=== PATIENT | female | born 2000 | race African-American/Black ===

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

== ENCOUNTER 2021-01-11 00:35 | Emergency (ER) | payer MEDICAID ==
[~2021-01-11] VITALS: Ht 160 cm; Wt 62.0 kg
[2021-01-11 00:38] VITALS: BP 115/65
[2021-01-11] MEDS ORDERED: IBUPROFEN 800MG TABLET PO ONE (01:00)
[2021-01-11] MEDS ORDERED: METOCLOPRAMIDE HCL 10MG TABLET PO ONE (01:00)
[2021-01-11 01:21] LABS: CLARITY URINE CLEAR (CLEAR); COLOR URINE YELLOW (YELLOW); KETONES URINE NEGATIVE (NEGATIVE); LEUKOCYTE ESTERASE URINE NEGATIVE (NEGATIVE); NITRITE URINE NEGATIVE (NEGATIVE); OCCULT BLOOD URINE NEGATIVE (NEGATIVE); PH URINE 5.5 (4.5-8.0); PROTEIN URINE NEGATIVE (NEGATIVE); SPECIFIC GRAVITY URINE 1.009 (1.005-1.030); UROBILINOGEN URINE 0.2 E.U./dL (0.2-1.0)
[2021-01-11] MEDS ORDERED: ONDA4TAB5 PO (01:33)
[2021-01-11] MEDS ORDERED: IBUP-2028 PO (01:33)
== END 2021-01-11 02:07 | disposition home or self-care (01) ==
LOC: ER 00:35
DX: R51.9 Headache, unspecified (principal); R11.0 Nausea; R42 Dizziness and giddiness; J45.909 Unspecified asthma, uncomplicated
CPT/HCPCS: 81003; 81025; 82962; 99283; J8597

== ENCOUNTER 2021-10-05 14:22 | Emergency (ER) | payer MEDICAID ==
[~2021-10-05] VITALS: Ht 160 cm; Wt 64.0 kg
[~2021-10-05 14:22] MED LIST: IBUP-2028 PO; ONDA4TAB5 PO
[2021-10-05 14:26] VITALS: BP 104/68
[2021-10-05] MEDS ORDERED: IBUPROFEN 600MG TABLET PO ONE (15:00)
== END 2021-10-05 15:45 | disposition left against medical advice (07) ==
LOC: ER 14:22
DX: J02.9 Acute pharyngitis, unspecified (principal); J45.909 Unspecified asthma, uncomplicated
CPT/HCPCS: 87070; 87430; 99283

== ENCOUNTER 2021-11-13 01:38 | Emergency (ER) | payer MEDICAID ==
[~2021-11-13] VITALS: Ht 162.6 cm; Wt 64.0 kg
[2021-11-13] MEDS ORDERED: DOXYCYCLINE HYCLATE 100MG CAPSULE PO ONE (03:45)
[2021-11-13] MEDS ORDERED: LIDOCAINE HCL 1% 20ML VIAL (Pyxis) INJ INFIL ONE (03:45)
[2021-11-13] MEDS ORDERED: CEFTRIAXONE SODIUM 500 MG/VIAL IM ONE (03:45)
[2021-11-13 05:04] LABS: CLARITY URINE CLEAR (CLEAR); COLOR URINE YELLOW (YELLOW); KETONES URINE NEGATIVE (NEGATIVE); LEUKOCYTE ESTERASE URINE NEGATIVE (NEGATIVE); NITRITE URINE NEGATIVE (NEGATIVE); OCCULT BLOOD URINE NEGATIVE (NEGATIVE); PROTEIN URINE NEGATIVE (NEGATIVE); SPECIFIC GRAVITY URINE 1.016 (1.005-1.030); UROBILINOGEN URINE 0.2 E.U./dL (0.2-1.0)
[2021-11-13] MEDS ORDERED: DOXY100T2 MT (05:12)
[2021-11-13 05:45] VITALS: BP 118/77
[2021-11-15 05:13] LABS: NEISSERIA GONORRHOEAE NAA Negative (Negative)
== END 2021-11-13 05:45 | disposition home or self-care (01) ==
LOC: ER 01:38
DX: N89.8 Other specified noninflammatory disorders of vagina (principal); R10.2 Pelvic and perineal pain; A64 Unspecified sexually transmitted disease; J45.909 Unspecified asthma, uncomplicated
CPT/HCPCS: 81003; 81025; 87210; 87491; 87591; 96372; 99283; J0696; J3490

== ENCOUNTER 2023-04-13 03:47 | Emergency (ER) | payer MEDICAID, OTHER ==
[~2023-04-13] VITALS: Ht 165.1 cm; Wt 62.8 kg
[~2023-04-13 03:47] MED LIST changes: +DOXY100T2 MT
[2023-04-13 03:53] VITALS: BP 110/64; O2SAT 100
[2023-04-13 04:14] LABS: BASOPHILS % 1.1 % (0.0-2.0); HEMATOCRIT. 37.9 % (36.0-48.0); HEMOGLOBIN. 12.8 g/dL (12.0-16.0); LYMPHOCYTES % 41.6 % (20.0-50.0); MEAN CORPUSCULAR HEMOGLOBIN 30.2 pg (28.0-32.0); MEAN CORPUSCULAR HGB CONC 33.8 g/dL (31.0-37.0); MEAN CORPUSCULAR VOLUME 89.3 fL (81.0-99.0); MEAN PLATELET VOLUME 7.9 fl (7.4-10.4); MONOCYTES % 6.4 % (2.0-8.0); NEUTROPHILS % 44.9 % (40.0-76.0); PLATELET 275 x1000/uL (130-400); RED BLOOD CELL COUNT 4.25 mill/uL (4.2-5.4); RED CELL DISTRIBUTION WIDTH 13.3 % (11.6-14.6); WHITE BLOOD COUNT 6.1 x1000/uL (4.5-11.0)
[2023-04-13] MEDS ORDERED: ACETAMINOPHEN 325MG TABLET PO ONE (04:15)
[2023-04-13 04:19] LABS: CLARITY URINE CLEAR (CLEAR); COLOR URINE YELLOW (YELLOW); GLUCOSE URINE NEGATIVE (NEGATIVE); KETONES URINE NEGATIVE (NEGATIVE); LEUKOCYTE ESTERASE URINE NEGATIVE (NEGATIVE); NITRITE URINE NEGATIVE (NEGATIVE); OCCULT BLOOD URINE NEGATIVE (NEGATIVE); PH URINE 6.5 (4.5-8.0); PROTEIN URINE NEGATIVE (NEGATIVE); SPECIFIC GRAVITY URINE 1.011 (1.005-1.030); UROBILINOGEN URINE 0.2 E.U./dL (0.2-1.0)
[2023-04-13 04:23] LABS: CHLORIDE 106 mEq/L (98-107); INDEX HEMOLYSI 1 (1-3); INDEX ICTERIC 1 (1-4); INDEX LIPEMIC 1 (1-3); SODIUM 138 mEq/L (136-145)
[2023-04-13 04:31] LABS: ALANINE AMINOTRANSFERASE 14 IU/L (13-61); ALBUMIN 3.9 g/dL (3.4-5.0); ASPARTATE AMINOTRANSFERASE 12 IU/L (15-37); BILIRUBIN TOTAL 0.4 mg/dL (0.1-1.0); CALCIUM 8.9 mg/dL (8.5-10.1); CARBON DIOXIDE 27 mEq/L (21-32); CREATININE 0.8 mg/dL (0.6-1.3); GLUCOSE 93 mg/dL (70-105); PROTEIN TOTAL 7.1 g/dL (6.0-8.3); UREA NITROGEN BLOOD 10 mg/dL (7-21)
[2023-04-13] MEDS ORDERED: POLY17PO3 PO (05:49)
[2023-04-13 06:15] VITALS: PULSE 85; RESP 16; TEMP 98
== END 2023-04-13 06:16 | disposition home or self-care (01) ==
LOC: ER 03:55
DX: K59.00 Constipation, unspecified (principal); J45.909 Unspecified asthma, uncomplicated
CPT/HCPCS: 36415; 74176; 80053; 81003; 81025; 85025; 99284

== ENCOUNTER 2023-08-01 02:02 | Emergency (ER) | payer MEDICAID ==
[~2023-08-01] VITALS: Ht 162.6 cm; Wt 61.0 kg
[~2023-08-01 02:02] MED LIST changes: +POLY17PO3 PO
[2023-08-01 02:34] VITALS: BP 118/76; PULSE 70; RESP 16; TEMP 98; O2SAT 100
== END 2023-08-01 06:09 | disposition left against medical advice (07) ==
LOC: ER 02:02
DX: M79.605 Pain in left leg (principal); Z53.21 Procedure and treatment not carried out due to patient leaving prior to being seen by health care provider
CPT/HCPCS: 99281

== ENCOUNTER 2024-04-24 21:45 | Emergency (ER) | payer MEDICAID ==
[~2024-04-24] VITALS: Ht 160 cm; Wt 62.0 kg
[2024-04-24 22:07] VITALS: O2SAT 100
[2024-04-24 23:06] LABS: BASOPHILS % 1.4 % (0.0-2.0); EOSINOPHILS % 8.4 % (0.0-5.0); HEMATOCRIT. 36.2 % (36.0-48.0); HEMOGLOBIN. 12.2 g/dL (12.0-16.0); LYMPHOCYTES % 44.9 % (20.0-50.0); MEAN CORPUSCULAR HEMOGLOBIN 30.7 pg (28.0-32.0); MEAN CORPUSCULAR HGB CONC 33.7 g/dL (31.0-37.0); MEAN CORPUSCULAR VOLUME 91.2 fL (81.0-99.0); NEUTROPHILS % 40.3 % (40.0-76.0); PLATELET 295 x1000/uL (130-400); RED BLOOD CELL COUNT 3.97 mill/uL (4.2-5.4); RED CELL DISTRIBUTION WIDTH 12.9 % (11.6-14.6)
[2024-04-24 23:08] LABS: CHLORIDE 107 mEq/L (98-107); POTASSIUM 3.8 mEq/L (3.5-5.1)
[2024-04-24 23:09] LABS: CARBON DIOXIDE 25 mEq/L (21-32); SODIUM 137 mEq/L (136-145)
[2024-04-24 23:10] LABS: CALCIUM 9.1 mg/dL (8.7-10.4)
[2024-04-24 23:14] LABS: CREATININE 0.9 mg/dL (0.6-1.0); GLUCOSE 121 mg/dL (70-105)
[2024-04-24 23:15] LABS: UREA NITROGEN BLOOD 8 mg/dL (9-23)
[2024-04-24 23:16] LABS: ALANINE AMINOTRANSFERASE 8 IU/L (10-49); ALBUMIN 4.1 g/dL (3.2-4.8); ASPARTATE AMINOTRANSFERASE 15 IU/L (<34)
[2024-04-24 23:17] LABS: BILIRUBIN DIRECT 0.2 mg/dL (<=3.0); BILIRUBIN TOTAL 0.7 mg/dL (0.1-1.0); PROTEIN TOTAL 6.7 g/dL (6.0-8.3)
[2024-04-24 23:28] LABS: CLARITY URINE CLEAR (CLEAR); COLOR URINE YELLOW (YELLOW); GLUCOSE URINE NEGATIVE (NEGATIVE); KETONES URINE NEGATIVE (NEGATIVE); LEUKOCYTE ESTERASE URINE NEGATIVE (NEGATIVE); NITRITE URINE NEGATIVE (NEGATIVE); OCCULT BLOOD URINE NEGATIVE (NEGATIVE); PROTEIN URINE NEGATIVE (NEGATIVE); SPECIFIC GRAVITY URINE 1.004 (1.005-1.030); UROBILINOGEN URINE 0.2 E.U./dL (0.2-1.0)
[2024-04-25] MEDS ORDERED: FAMO-135 MT (01:09)
[2024-04-25] MEDS ORDERED: [UNRECOGNIZED DRUG - CODE] PO (01:09)
[2024-04-25 01:58] VITALS: BP 98/64; PULSE 74; RESP 18; TEMP 36.89184; O2SAT 100
== END 2024-04-25 06:37 | disposition home or self-care (01) ==
LOC: ER 21:45
DX: K80.50 Calculus of bile duct without cholangitis or cholecystitis without obstruction (principal); J45.909 Unspecified asthma, uncomplicated; Z79.899 Other long term (current) drug therapy
CPT/HCPCS: 36415; 76705; 80048; 80076; 81003; 81025; 85025; 99284

== ENCOUNTER 2024-12-25 13:50 | Emergency (ER) | payer MEDICAID ==
[~2024-12-25] VITALS: Ht 162.6 cm; Wt 61.0 kg
[~2024-12-25 13:50] MED LIST changes: +FAMO-135 MT; +[UNRECOGNIZED DRUG - CODE] PO
[2024-12-25 14:05] VITALS: TEMP 36.9; O2SAT 100
[2024-12-25 15:02] LABS: BASOPHILS % 0.8 % (0.0-2.0); HEMOGLOBIN. 12.3 g/dL (12.0-16.0); LYMPHOCYTES % 36.5 % (20.0-50.0); MEAN CORPUSCULAR HEMOGLOBIN 30.7 pg (28.0-32.0); MEAN CORPUSCULAR HGB CONC 34.1 g/dL (31.0-37.0); MEAN CORPUSCULAR VOLUME 89.9 fL (81.0-99.0); MEAN PLATELET VOLUME 8.4 fl (7.4-10.4); MONOCYTES % 7.6 % (2.0-8.0); NEUTROPHILS % 46.1 % (40.0-76.0); PLATELET 279 x1000/uL (130-400); RED CELL DISTRIBUTION WIDTH 13.4 % (11.6-14.6); WHITE BLOOD COUNT 5.3 x1000/uL (4.5-11.0)
[2024-12-25 15:09] LABS: CHLORIDE 111 mEq/L (98-107); POTASSIUM 4.1 mEq/L (3.5-5.1); SODIUM 141 mEq/L (136-145)
[2024-12-25 15:10] LABS: CARBON DIOXIDE 26 mEq/L (21-32)
[2024-12-25 15:11] LABS: CALCIUM 9.1 mg/dL (8.7-10.4)
[2024-12-25 15:15] LABS: CREATININE 1.1 mg/dL (0.6-1.0)
[2024-12-25 15:16] LABS: GLUCOSE 79 mg/dL (70-105); UREA NITROGEN BLOOD 12 mg/dL (9-23)
[2024-12-25 15:17] LABS: ALANINE AMINOTRANSFERASE < 7 IU/L (10-49); ASPARTATE AMINOTRANSFERASE 15 IU/L (<34)
[2024-12-25 15:18] LABS: ALBUMIN 4.2 g/dL (3.2-4.8); BILIRUBIN DIRECT 0.2 mg/dL (<=3.0); BILIRUBIN TOTAL 0.6 mg/dL (0.1-1.0); PROTEIN TOTAL 6.8 g/dL (6.0-8.3)
[2024-12-25 16:08] LABS: HCG SCREEN NEGATIVE
[2024-12-25 16:13] LABS: CLARITY URINE CLEAR (CLEAR); COLOR URINE YELLOW (YELLOW); GLUCOSE URINE NEGATIVE (NEGATIVE); KETONES URINE NEGATIVE (NEGATIVE); LEUKOCYTE ESTERASE URINE NEGATIVE (NEGATIVE); NITRITE URINE NEGATIVE (NEGATIVE); OCCULT BLOOD URINE NEGATIVE (NEGATIVE); PH URINE 7.5 (4.5-8.0); PROTEIN URINE NEGATIVE (NEGATIVE); SPECIFIC GRAVITY URINE 1.015 (1.005-1.030); UROBILINOGEN URINE 0.2 E.U./dL (0.2-1.0)
[2024-12-25 16:20] LABS: UCG KIT EXPIRATION DATE 11/27/2026; UCG KIT LOT# 946166; UCG SCREEN NEGATIVE
[2024-12-25 16:42] VITALS: BP 96/58; PULSE 76; RESP 16; O2SAT 99
== END 2024-12-25 16:43 | disposition home or self-care (01) ==
LOC: ER 13:50
DX: R10.2 Pelvic and perineal pain (principal); J45.909 Unspecified asthma, uncomplicated; Z79.1 Long term (current) use of non-steroidal anti-inflammatories (NSAID); Z79.899 Other long term (current) drug therapy
CPT/HCPCS: 36415; 80048; 80076; 81003; 81025; 84703; 85025; 86850; 86900; 99283

== ENCOUNTER 2025-04-19 22:38 | Emergency (ER) | payer MEDICAID ==
[~2025-04-19] VITALS: Ht 157.5 cm; Wt 54.3 kg
[2025-04-19 22:41] VITALS: O2SAT 99
[2025-04-19 23:58] LABS: CREATININE 0.9 mg/dL (0.6-1.0); UREA NITROGEN BLOOD 8 mg/dL (9-23)
[2025-04-20] LABS: ASPARTATE AMINOTRANSFERASE 16 IU/L (<34); BILIRUBIN DIRECT 0.2 mg/dL (<=3.0)
[2025-04-20 00:01] LABS: BILIRUBIN TOTAL 0.6 mg/dL (0.1-1.0); PROTEIN TOTAL 7.0 g/dL (6.0-8.3)
[2025-04-20 00:33] LABS: CLARITY URINE CLEAR (CLEAR); COLOR URINE YELLOW (YELLOW); GLUCOSE URINE NEGATIVE (NEGATIVE); KETONES URINE 1+ (NEGATIVE); LEUKOCYTE ESTERASE URINE NEGATIVE (NEGATIVE); NITRITE URINE NEGATIVE (NEGATIVE); OCCULT BLOOD URINE NEGATIVE (NEGATIVE); PH URINE 5.0 (4.5-8.0); PROTEIN URINE NEGATIVE (NEGATIVE); SPECIFIC GRAVITY URINE 1.018 (1.005-1.030); UROBILINOGEN URINE 1.0 E.U./dL (0.2-1.0)
[2025-04-20] MEDS: ACETAMINOPHEN 325MG TABLET PO ONE (01:37)
[2025-04-20] MEDS: ONDANSETRON HCL 4MG TABLET PO ONE (01:38)
[2025-04-20 02:21] LABS: BASOPHILS % 1.1 % (0.0-2.0); EOSINOPHILS % 5.7 % (0.0-5.0); HEMATOCRIT. 37.4 % (36.0-48.0); HEMOGLOBIN. 12.6 g/dL (12.0-16.0); LYMPHOCYTES % 48.6 % (20.0-50.0); MEAN PLATELET VOLUME 9.0 fl (7.4-10.4); MONOCYTES % 7.0 % (2.0-8.0); NEUTROPHILS % 37.6 % (40.0-76.0); PLATELET 275 x1000/uL (130-400); RED BLOOD CELL COUNT 4.15 mill/uL (4.2-5.4); RED CELL DISTRIBUTION WIDTH 13.1 % (11.6-14.6)
[2025-04-20] MEDS ORDERED: NAPR-1176 MT (02:36)
[2025-04-20 02:41] LABS: HCG SCREEN NEGATIVE
[2025-04-20 02:49] VITALS: BP 98/60; PULSE 76; RESP 16; TEMP 37.3; O2SAT 100
== END 2025-04-20 03:03 | disposition home or self-care (01) ==
LOC: ER 22:38
DX: R10.12 Left upper quadrant pain (principal); R11.0 Nausea; J45.909 Unspecified asthma, uncomplicated; Z79.1 Long term (current) use of non-steroidal anti-inflammatories (NSAID)
CPT/HCPCS: 99284; 80076; 80048; 84703; 83690; 85025; 36415; 76700; 81003; Q0162